=== PATIENT | male | born 1935 | race Caucasian/White ===

== ENCOUNTER 2017-12-12 15:38 | Emergency (ER) | payer OTHER ==
[~2017-12-12] VITALS: Ht 177.8 cm; Wt 83.9 kg
[~2017-12-12 15:38] MED LIST: ALBU90OI INH; ALTACE; ASPI81CH PO; ASPI81EC; ASPI81EC PO; ATOR10; BENZ100A PO; CARV6.25 PO; CLOP75 PO; CO ENZYME; CRESTOR; DIPASPER PO; DOXY100T53 PO; EFFIENT; EZET10; FISH1000 PO; FLUSAL1005; HYDACE5 PO; HYDR1TAB94; HYDR1TAB94 PO; ISOMON20 PO; ISOMON60ER PO; LISI20 PO; MECL25 PO; METF500; METF500 PO; METO100ER PO; METO25ER PO; METOPROLOL; NAPR500 PO; NITR.4SL SL; Nitrostat0.4 MG PO; OXYACE5T PO; OXYGEN USE; QUIN260; RAMI2.5 PO; RAMI5; RANO500T PO; RENEXA PO; ROSU5 PO; RXANTBENOT RIGHTEAR; RXHYD5325 PO; TIOT18; TRAM50 PO; WARF3 PO; WARF4 PO; WARF5 PO; WARF6; WARF6 PO; WARF7.5; WARFARIN; [UNRECOGNIZED DRUG - OTHER]
[2017-12-12] MEDS ORDERED: WARF4 PO (16:32)
[2017-12-12] MEDS ORDERED: WARF3 PO (16:32)
== END 2017-12-12 16:45 | disposition home or self-care (01) ==
LOC: ER 15:38
DX: S20.211A Contusion of right front wall of thorax, initial encounter (principal); I25.2 Old myocardial infarction; E11.9 Type 2 diabetes mellitus without complications; I11.0 Hypertensive heart disease with heart failure; I50.9 Heart failure, unspecified; F17.220 Nicotine dependence, chewing tobacco, uncomplicated; Z79.899 Other long term (current) drug therapy; Z79.01 Long term (current) use of anticoagulants; V00.148A Other scooter (nonmotorized) accident, initial encounter
CPT/HCPCS: 71101; 99283

== ENCOUNTER 2019-04-13 10:17 | Emergency (ER) | payer OTHER ==
[~2019-04-13] VITALS: Ht 177.8 cm; Wt 81.7 kg
== END 2019-04-13 11:09 | disposition home or self-care (01) ==
LOC: ER 10:17
DX: T60.91XA Toxic effect of unspecified pesticide, accidental (unintentional), initial encounter (principal); J68.0 Bronchitis and pneumonitis due to chemicals, gases, fumes and vapors; E11.9 Type 2 diabetes mellitus without complications; I11.0 Hypertensive heart disease with heart failure; I50.9 Heart failure, unspecified; I25.2 Old myocardial infarction; Z85.46 Personal history of malignant neoplasm of prostate; Z86.73 Personal history of transient ischemic attack (TIA), and cerebral infarction without residual deficits; Z79.899 Other long term (current) drug therapy; Z79.01 Long term (current) use of anticoagulants
CPT/HCPCS: 93005; 93010; 99284-25

== ENCOUNTER → 2019-08-10 | Outpatient (CLI) | payer OTHER | END | disposition home or self-care (01) | LOC: LAB 19:16 → LAB SHORT 19:16 | DX: L08.9 Local infection of the skin and subcutaneous tissue, unspecified (principal) | CPT/HCPCS: 87070; 87205 ==

== ENCOUNTER 2021-06-30 06:34 | Day surgery (SDC) | payer OTHER ==
[~2021-06-30] VITALS: Ht 177.8 cm; Wt 86.0 kg
[2021-06-30 07:13] LABS: BASOPHILS ABSOLUTE AUTO 0.03 K/mm3 (0.00-0.23); BASOPHILS PERCENT AUTO 1 % (0-2); EOSINOPHILS ABSOLUTE AUTO 0.09 K/mm3 (0.00-0.68); EOSINOPHILS PERCENT AUTO 2 % (0-6); Hematocrit 44.5 % (37.0-53.0); Hemoglobin 14.4 g/dL (13.5-17.5); IMMATURE GRAN ABSOLUTE AUTO 0.01 K/mm3 (0.00-0.10); IMMATURE GRAN PERCENT AUTO 0 % (0-1); LYMPHOCYTES ABSOLUTE AUTO 0.43 K/mm3 (0.84-5.20); LYMPHOCYTES PERCENT AUTO 7 % (21-46); MONOCYTES ABSOLUTE AUTO 0.45 K/mm3 (0.16-1.47); MONOCYTES PERCENT AUTO 8 % (4-13); Mean Corpuscular HGB 30.4 pg (26.0-34.0); Mean Corpuscular HGB Conc 32.4 g/dL (31.5-36.5); Mean Corpuscular Volume 94 fL (80-100); Mean Platelet Volume 8.5 fL (9.1-12.4); NEUTROPHILS ABSOLUTE AUTO 4.87 K/mm3 (1.96-9.15); NEUTROPHILS PERCENT AUTO 83 % (41-73); Platelet Count 192 K/mm3 (150-400); RDW Coefficient Variation 12.8 % (11.7-14.2); RDW Standard Deviation 44.5 fL (35.1-46.3); Red Blood Cell Count 4.74 M/mm3 (4.30-5.90); White Blood Cell Count 5.88 K/mm3 (4.00-11.30)
[2021-06-30 07:31] LABS: International Normalized Ratio 1.35; Prothrombin Time Results 13.9 Sec (9.7-11.5)
[2021-06-30 08:17] LABS: Bun/Creatinine Ratio 17.6 (12.0-20.0); Calcium, Blood 8.9 mg/dL (8.5-10.1); Creatinine, Blood 1.42 mg/dL (0.60-1.20); Potassium, Blood 4.6 mmol/L (3.5-5.5)
--- NOTE | 2021-06-30 10:42 | NUR ---
PT BACK TO RECOVERY ROOM VIA BED AFTER PROCEDURE. REMAINS SEDATED, DOES ROUSE TO LOUD VERBAL STIMULI. LEFT FEMORAL AND RIGHT PT SITES BOTH SOFT AND WITHOUT BLEEDING OR SWELLING. PT'S SPOUSE AT BEDSIDE.
--- NOTE | 2021-06-30 11:36 | NUR ---
PT CONTINUES TO SLEEP IN NO DISTRESS. BOTH ACCESS SITES REMAIN SOFT WITHOUT ANY BLEEDING OR SWELLING. VSS, CALL LIGHT IN REACH. SPOUSE REMAINS AT BEDSIDE.
== END 2021-06-30 14:00 | disposition home or self-care (01) ==
LOC: MHTC 06:34
PROVIDERS: Radiology Diagnostic Radiology
DX: I70.293 Other atherosclerosis of native arteries of extremities, bilateral legs (principal); Z95.5 Presence of coronary angioplasty implant and graft; I25.10 Atherosclerotic heart disease of native coronary artery without angina pectoris; J44.9 Chronic obstructive pulmonary disease, unspecified; Z86.73 Personal history of transient ischemic attack (TIA), and cerebral infarction without residual deficits; Z79.899 Other long term (current) drug therapy
CPT/HCPCS: 36415; 76937; 80048; 85025; 85347; 85610; 99152; 99153; C1725; C1760; C1769; C1887; C1894; J1644; J2250; J3010; J7030; J7050; Q9967

== ENCOUNTER → 2021-07-29 | Outpatient (CLI) | payer OTHER | END | disposition home or self-care (01) | LOC: LAB SHORT 14:53 | DX: L08.9 Local infection of the skin and subcutaneous tissue, unspecified (principal) | CPT/HCPCS: 87070; 87077; 87186; 87205 ==

== ENCOUNTER 2021-08-04 06:50 | Day surgery (SDC) | payer OTHER ==
[~2021-08-04] VITALS: Ht 177.8 cm; Wt 84.1 kg
[2021-08-04 07:23] LABS: BASOPHILS ABSOLUTE AUTO 0.02 K/mm3 (0.00-0.23); BASOPHILS PERCENT AUTO 0 % (0-2); EOSINOPHILS ABSOLUTE AUTO 0.17 K/mm3 (0.00-0.68); EOSINOPHILS PERCENT AUTO 3 % (0-6); Hematocrit 39.7 % (37.0-53.0); Hemoglobin 13.1 g/dL (13.5-17.5); IMMATURE GRAN ABSOLUTE AUTO 0.03 K/mm3 (0.00-0.10); IMMATURE GRAN PERCENT AUTO 1 % (0-1); LYMPHOCYTES ABSOLUTE AUTO 1.15 K/mm3 (0.84-5.20); LYMPHOCYTES PERCENT AUTO 22 % (21-46); MONOCYTES PERCENT AUTO 10 % (4-13); Mean Corpuscular HGB 30.8 pg (26.0-34.0); Mean Corpuscular Volume 93 fL (80-100); Mean Platelet Volume 8.1 fL (9.1-12.4); NEUTROPHILS ABSOLUTE AUTO 3.35 K/mm3 (1.96-9.15); NEUTROPHILS PERCENT AUTO 64 % (41-73); Platelet Count 205 K/mm3 (150-400); RDW Coefficient Variation 13.2 % (11.7-14.2); RDW Standard Deviation 45.1 fL (35.1-46.3); Red Blood Cell Count 4.26 M/mm3 (4.30-5.90); White Blood Cell Count 5.22 K/mm3 (4.00-11.30)
[2021-08-04 07:36] LABS: International Normalized Ratio 1.09; Prothrombin Time Results 11.4 Sec (9.7-11.5)
[2021-08-04 07:39] LABS: Calcium, Blood 8.5 mg/dL (8.5-10.1); Creatinine, Blood 1.35 mg/dL (0.60-1.20); Potassium, Blood 3.9 mmol/L (3.5-5.5)
--- NOTE | 2021-08-04 11:09 | NUR ---
PT BACK TO RECOVERY ROOM POST PROCEDURE. AWAKE AND ALERT, CURRENTLY DENIES ANY DISCOMFORT. LEFT GROIN SITE SOFT, NO BLEEDING NOTED. REPORT FROM MAYELA PETERS.
--- NOTE | 2021-08-04 11:42 | NUR ---
BEDSIDE ECHO IN PROGRESS
== END 2021-08-04 14:00 | disposition home or self-care (01) ==
LOC: MHTC 06:50
PROVIDERS: Radiology Diagnostic Radiology
DX: I70.293 Other atherosclerosis of native arteries of extremities, bilateral legs (principal); J44.9 Chronic obstructive pulmonary disease, unspecified; E11.9 Type 2 diabetes mellitus without complications; I10 Essential (primary) hypertension; I48.91 Unspecified atrial fibrillation; I25.10 Atherosclerotic heart disease of native coronary artery without angina pectoris; F17.220 Nicotine dependence, chewing tobacco, uncomplicated; Z79.01 Long term (current) use of anticoagulants; Z95.5 Presence of coronary angioplasty implant and graft; Z95.1 Presence of aortocoronary bypass graft; Z86.73 Personal history of transient ischemic attack (TIA), and cerebral infarction without residual deficits
CPT/HCPCS: 36415; 75716; 75774; 76937; 80048; 85025; 85610; 93306; 99152; 99153; C1725; C1760; C1769; C1887; C1894; C9772; J1644; J2250; J3010; J7030; J7050; Q9967

== ENCOUNTER 2021-08-08 11:43 | Emergency (ER) | payer OTHER ==
[~2021-08-08] VITALS: Ht 177.8 cm; Wt 83.9 kg
[2021-08-08 12:56] LABS: BASOPHILS ABSOLUTE AUTO 0.02 K/mm3 (0.00-0.23); BASOPHILS PERCENT AUTO 0 % (0-2); EOSINOPHILS ABSOLUTE AUTO 0.16 K/mm3 (0.00-0.68); EOSINOPHILS PERCENT AUTO 3 % (0-6); IMMATURE GRAN ABSOLUTE AUTO 0.02 K/mm3 (0.00-0.10); IMMATURE GRAN PERCENT AUTO 0 % (0-1); LYMPHOCYTES ABSOLUTE AUTO 0.96 K/mm3 (0.84-5.20); LYMPHOCYTES PERCENT AUTO 17 % (21-46); MONOCYTES ABSOLUTE AUTO 0.66 K/mm3 (0.16-1.47); MONOCYTES PERCENT AUTO 12 % (4-13); Mean Corpuscular HGB 30.7 pg (26.0-34.0); Mean Corpuscular HGB Conc 33.3 g/dL (31.5-36.5); Mean Corpuscular Volume 92 fL (80-100); Mean Platelet Volume 8.5 fL (9.1-12.4); NEUTROPHILS ABSOLUTE AUTO 3.83 K/mm3 (1.96-9.15); NEUTROPHILS PERCENT AUTO 68 % (41-73); Platelet Count 202 K/mm3 (150-400); RDW Coefficient Variation 13.1 % (11.7-14.2); RDW Standard Deviation 44.3 fL (35.1-46.3); Red Blood Cell Count 4.24 M/mm3 (4.30-5.90); White Blood Cell Count 5.65 K/mm3 (4.00-11.30)
[2021-08-08 13:16] LABS: Albumin, Blood 3.2 g/dL (3.4-5.0); Albumin/Globulin Ratio 0.9 (0.8-1.8); Bilirubin, Total 0.6 mg/dL (0.1-1.0); Bun/Creatinine Ratio 19.1 (12.0-20.0); Calcium, Blood 8.7 mg/dL (8.5-10.1); Creatinine, Blood 1.36 mg/dL (0.60-1.20); Globulin, Blood 3.6 g/dL (2.2-4.0); Potassium, Blood 4.1 mmol/L (3.5-5.5); Total Protein, Blood 6.8 g/dL (6.4-8.2)
[2021-08-08] MEDS ORDERED: CEFD300 PO (13:59)
== END 2021-08-08 14:23 | disposition home or self-care (01) ==
LOC: ER 11:43
PROVIDERS: Physician Assistant
DX: E11.628 Type 2 diabetes mellitus with other skin complications (principal); L03.115 Cellulitis of right lower limb; I25.2 Old myocardial infarction; I11.0 Hypertensive heart disease with heart failure; I50.9 Heart failure, unspecified; Z86.73 Personal history of transient ischemic attack (TIA), and cerebral infarction without residual deficits; Z79.01 Long term (current) use of anticoagulants; Z79.899 Other long term (current) drug therapy; F17.220 Nicotine dependence, chewing tobacco, uncomplicated
CPT/HCPCS: 36415; 73630; 80053; 85025; 96374; 99283-25; J0690; J0696

== ENCOUNTER 2021-08-19 09:17 | Emergency (ER) | payer OTHER ==
[~2021-08-19] VITALS: Ht 177.8 cm; Wt 83.9 kg
[~2021-08-19 09:17] MED LIST changes: +CEFD300 PO
[2021-08-19] MEDS ORDERED: LEVFLO500 PO (09:38)
[2021-08-19] MEDS ORDERED: OXYC10TA19 PO ×2 (09:38→12:49)
[2021-08-19] MEDS ORDERED: SENNA LAXATIVE8.6 MG PO (09:39)
[2021-08-19] MEDS ORDERED: LORCET 5-325 M1 EAC3 PO (09:39)
[2021-08-19 10:22] LABS: Albumin, Blood 3.1 g/dL (3.4-5.0); Albumin/Globulin Ratio 0.8 (0.8-1.8); Bilirubin, Total 0.7 mg/dL (0.1-1.0); Bun/Creatinine Ratio 18.1 (12.0-20.0); Calcium, Blood 8.9 mg/dL (8.5-10.1); Creatinine, Blood 1.44 mg/dL (0.60-1.20); Globulin, Blood 4.1 g/dL (2.2-4.0); Potassium, Blood 4.4 mmol/L (3.5-5.5); Total Protein, Blood 7.2 g/dL (6.4-8.2)
[2021-08-19 10:23] LABS: BASOPHILS ABSOLUTE AUTO 0.03 K/mm3 (0.00-0.23); BASOPHILS PERCENT AUTO 1 % (0-2); EOSINOPHILS ABSOLUTE AUTO 0.18 K/mm3 (0.00-0.68); EOSINOPHILS PERCENT AUTO 3 % (0-6); Hematocrit 38.7 % (37.0-53.0); Hemoglobin 12.5 g/dL (13.5-17.5); IMMATURE GRAN ABSOLUTE AUTO 0.02 K/mm3 (0.00-0.10); IMMATURE GRAN PERCENT AUTO 0 % (0-1); LYMPHOCYTES ABSOLUTE AUTO 0.66 K/mm3 (0.84-5.20); LYMPHOCYTES PERCENT AUTO 11 % (21-46); MONOCYTES ABSOLUTE AUTO 0.57 K/mm3 (0.16-1.47); MONOCYTES PERCENT AUTO 9 % (4-13); Mean Corpuscular HGB 29.8 pg (26.0-34.0); Mean Corpuscular HGB Conc 32.3 g/dL (31.5-36.5); Mean Corpuscular Volume 92 fL (80-100); Mean Platelet Volume 8.3 fL (9.1-12.4); NEUTROPHILS ABSOLUTE AUTO 4.59 K/mm3 (1.96-9.15); NEUTROPHILS PERCENT AUTO 76 % (41-73); Platelet Count 283 K/mm3 (150-400); RDW Coefficient Variation 12.4 % (11.7-14.2); RDW Standard Deviation 42.1 fL (35.1-46.3); White Blood Cell Count 6.05 K/mm3 (4.00-11.30)
[2021-08-19 10:38] LABS: International Normalized Ratio 2.26; Prothrombin Time Results 22.5 Sec (9.7-11.5)
== END 2021-08-19 13:04 | disposition home or self-care (01) ==
LOC: ER 09:17
PROVIDERS: Physician Assistant
DX: I96 Gangrene, not elsewhere classified (principal); I25.2 Old myocardial infarction; E11.9 Type 2 diabetes mellitus without complications; I11.0 Hypertensive heart disease with heart failure; I50.9 Heart failure, unspecified; F17.220 Nicotine dependence, chewing tobacco, uncomplicated; Z86.73 Personal history of transient ischemic attack (TIA), and cerebral infarction without residual deficits; Z79.01 Long term (current) use of anticoagulants; Z79.899 Other long term (current) drug therapy
CPT/HCPCS: 36415; 80053; 83605; 85025; 85610; 93926; 96374; 99284-25; J1170

== ENCOUNTER → 2021-10-20 | Outpatient (CLI) | payer OTHER ==
[~2021-10-20] MED LIST changes: +HYDMOR2 PO; +LEVFLO500 PO; +LORCET 5-325 M1 EAC3 PO; +OXYC10TA19 PO; +SENNA LAXATIVE8.6 MG PO
== END | disposition home or self-care (01) ==
LOC: LAB SHORT 13:21
DX: L97.511 Non-pressure chronic ulcer of other part of right foot limited to breakdown of skin (principal)
CPT/HCPCS: 87070; 87075; 87077; 87147; 87186; 87205

== ENCOUNTER 2021-11-04 06:30 | Day surgery (SDC) | payer OTHER ==
[~2021-11-04] VITALS: Ht 172.7 cm; Wt 82.0 kg
[2021-11-04] MEDS ORDERED: PREG75 PO (06:52)
[2021-11-04] MEDS ORDERED: DULO30 PO (06:52)
[2021-11-04] MEDS ORDERED: CIPR750 PO (06:54)
--- NOTE | 2021-11-04 13:43 | NUR ---
PT AND DAUGHTER VERBALIZED UNDERSTANDING OF D/C INSTRUCTIONS. PAPERWORK PROVIDED IN FOLDER. RIGHT GROIN SITE SOFT NON TENDER WITH NO ACTIVE BLEEDING, OR OOZING NOTED. PT DENIES PAIN. IV REMOVED FROM LAC WITH CATH INTACT, PRESSURE DRESSING APPLIED. PT GETS DRESSED WITH ASSISTANCE FROM HIS DAUGHTER, PIVOT TRANSFER TO W/C WITH NO DIFFICULTIES. ENCOURAGED TO FOLLOW UP WITH PROVIDER SCHEDULED. TAKEN OUT TO PRIVATE VEHICLE WITH NO ACUTE DISTRESS NOTED.
== END 2021-11-04 13:30 | disposition home or self-care (01) ==
LOC: MHTC 06:30
DX: E11.51 Type 2 diabetes mellitus with diabetic peripheral angiopathy without gangrene (principal); I70.213 Atherosclerosis of native arteries of extremities with intermittent claudication, bilateral legs; I11.0 Hypertensive heart disease with heart failure; I50.9 Heart failure, unspecified; J44.9 Chronic obstructive pulmonary disease, unspecified; I25.10 Atherosclerotic heart disease of native coronary artery without angina pectoris; F17.220 Nicotine dependence, chewing tobacco, uncomplicated; H54.8 Legal blindness, as defined in USA; Z79.01 Long term (current) use of anticoagulants
CPT/HCPCS: 76937; 99152; 99153; C1725; C1760; C1769; C1887; C1894; J1644; J2250; J3010; J7030; Q9967